=== PATIENT | female | born 1960 | race Caucasian/White ===

== ENCOUNTER → 2024-01-09 08:49 | Outpatient (REF) | payer OTHER, SELFPAY | LOC: WDC 08:49 | PROVIDERS: ATTENDING PHYSICIAN Student in an Organized Health Care Education/Training Program | DX: N64.59 Other signs and symptoms in breast (principal) | CPT/HCPCS: 76642; 77062; 77066 ==

== ENCOUNTER → 2024-01-15 10:12 | Outpatient (REF) | payer OTHER, SELFPAY | LOC: WDC 10:12 | PROVIDERS: ATTENDING PHYSICIAN Student in an Organized Health Care Education/Training Program | DX: N63.42 Unspecified lump in left breast, subareolar (principal) | CPT/HCPCS: 88305; 19083; 77065; 88341; 88342; 88360; A4648 ==

== ENCOUNTER → 2024-01-16 08:45 | Outpatient (REF) | payer OTHER, SELFPAY | LOC: RAD 08:45 | PROVIDERS: ATTENDING PHYSICIAN Student in an Organized Health Care Education/Training Program | DX: Z13.820 Encounter for screening for osteoporosis (principal) | CPT/HCPCS: 77080 ==

== ENCOUNTER → 2024-01-26 08:47 | Outpatient (REF) | payer OTHER, SELFPAY | LOC: RAD 08:47 | PROVIDERS: ATTENDING PHYSICIAN Surgery; FAMILY PHYSICIAN Student in an Organized Health Care Education/Training Program | DX: C50.412 Malignant neoplasm of upper-outer quadrant of left female breast (principal); Z17.0 Estrogen receptor positive status [ER+] | CPT/HCPCS: 71260; 74177; 78306; A9503; Q9967 ==

== ENCOUNTER → 2024-02-03 16:05 | Outpatient (REF) | payer OTHER, SELFPAY | LOC: MRI 3T 16:05 | PROVIDERS: ATTENDING PHYSICIAN Surgery; FAMILY PHYSICIAN Family Medicine | DX: C50.412 Malignant neoplasm of upper-outer quadrant of left female breast (principal); Z17.0 Estrogen receptor positive status [ER+] | CPT/HCPCS: 77049; A9585 ==

== ENCOUNTER 2024-03-30 16:09 | Emergency (ER) | payer OTHER, MEDICARE, SELFPAY ==
[2024-03-30 16:10] VITALS: BMI 32.2
[2024-03-30 16:12] VITALS: BP 165/79
[2024-03-30 16:35] LABS: Hematocrit 23.8 % (37.0-47.0); Hemoglobin 7.8 g/dL (12.0-16.0); Mean Corp Hgb Conc. 32.8 g/dL (33.0-37.0); Mean Corpuscular Hgb 32.6 pg (27.0-31.0); Mean Corpuscular Volume 99.6 fL (81.0-99.0); Mean Platelet Volume 8.9 fL (7.4-10.4); Platelet Count 186 10^3/uL (130-400); Red Blood Cell Count 2.39 10^6/uL (4.20-5.40); Red Cell Dist. Width 18.8 % (11.5-14.5); White Blood Cell Count 2.8 10^3/uL (4.8-10.8)
[2024-03-30 16:43] LABS: ALT (SGPT) 34 U/L (0-35); AST (SGOT) 39 U/L (14-36); Albumin 4.5 g/dl (3.5-5.0); Alkaline Phosphatase 116 U/L (38-126); Blood Urea Nitrogen 14 mg/dl (7-17); Calcium 8.4 mg/dl (8.4-10.2); Carbon Dioxide 25 mmol/L (22-30); Chloride 107 mmol/L (98-107); Glucose 109 mg/dl (70-99); Potassium 4.3 mmol/L (3.5-5.1); Sodium 142 mmol/L (135-145); Total Bilirubin 1.2 mg/dl (0.2-1.3); Total Protein 7.1 g/dl (6.3-8.2); eGFR > 60.00
--- NOTE | 2024-03-30 16:49 | ED.GENMED ---
History of Present Illness
General
Chief Complaint: Chest Pain
Source: patient
Exam Limitations: none
Time Seen by Provider: 03/30/24 16:48
History of Present Illness
History of Present Illness:
63-year-old female complaining of episodes of heart pounding and racing usually at night. Will come on gradually. No sudden onset. Denies actual chest pain shortness of breath pleuritic pain fever chills cough. Patient's family called the
oncologist today and based on the symptoms and a slight drop in hemoglobin recommended ED evaluation. Currently asymptomatic.
Past History
Past History
ED Past Medical History: Cancer
ED Past Surgical History: Orthopedic
Review of Systems
Review of Systems
All Other Systems: Not applicable
Constitutional: Denies fever or chills
Respiratory: Denies trouble breathing
ABD/GI: Reports no symptoms
Phy Exam
Physical Exam
Physical Exam:
GENERAL: Alert and oriented in no apparent distress
EYE: Orbits normal.
NECK: Supple, no thyroid palpable
ENT: Pharynx without erythema
CARDIAC: Regular rate and rhythm without any obvious murmurs.
LUNGS: Clear breath sounds,normal
ABDOMEN: Soft, without focal tenderness or distention
NEUROLOGICAL: Alert and oriented , grossly non-focal
SKIN: Warm and dry, no rash or lesion, no discoloration, skin intact.
MUSCULOSKELETAL: No edema,no deformity.Good color
PSYCH: Normal and appropriate interaction.
Scores
Heart Score for Chest Pain Patients
STEMI patient?: Not applicable
Course
Orders/Labs/Results
Orders:
Orders
03/30/24 16:10
Electrocardiogram (*1) Urgent
Reason for Study: Chest Pain
03/30/24 16:11
EKG- Treatment ONCE
03/30/24 16:21
CMP [Comprehensive Metabolic Panel] Urgent
Complete Blood Count/With Diff Urgent
Manual Differential Urgent
Troponin I Urgent
03/30/24 17:35
CT Chest Pe Study Urgent
Comment:
Reason For Exam: Heart racing/chest pain
IV Insert/Care/Rem.- Treatment PRN
IV Insert/Care/Rem.- Treatment PRN
0.9% Sodium Chloride 500 ml [Nss] 500 ml IV BOLUS
03/30/24 17:38
Type+Screen Urgent
03/30/24 18:15
ABO2 Urgent
BBK Wristband Number:
Associate notified that ABO2 has been ordered: [id number]
Date: 03/30/24
Time: 17:52
Personnel Psychologist ID: [id number]
Abnormal Lab Results
03/30/24
16:21
WBC 2.8 L 10^3/uL
(4.8-10.8)
RBC 2.39 L 10^6/uL
(4.20-5.40)
Hgb 7.8 L g/dL
(12.0-16.0)
Hct 23.8 L %
(37.0-47.0)
MCV 99.6 H fL
(81.0-99.0)
MCH 32.6 H pg
(27.0-31.0)
MCHC 32.8 L g/dL
(33.0-37.0)
RDW 18.8 H %
(11.5-14.5)
Glucose 109 H mg/dl
(70-99)
AST 39 H U/L
(14-36)
03/30/24 16:21
03/30/24 16:21
Vital Signs
Initial and Last Documented VS:
Initial Vital Signs
Temp Pulse Resp BP Pulse Ox
98.5 F 88 18 165/79 98
03/30/24 16:12 03/30/24 16:12 03/30/24 16:12 03/30/24 16:12 03/30/24 16:12
Last Documented Vital Signs
Temp Pulse Resp BP Pulse Ox
98.5 F 71 20 129/79 98
03/30/24 16:12 03/30/24 19:00 03/30/24 19:00 03/30/24 19:00 03/30/24 19:00
*Radiology
Radiology exam reviewed: radiology read reviewed (No pulmonary emboli. No acute findings)
*Pulse Oximetry
Patient hypoxic: no
*EKG
Interpreted by ED Provider?: Yes
Interpretation: normal
Comparison EKG: no changes
Heart Rate: 85
Rate: normal
Rhythm: sinus
Taylor: normal axis
Interval: normal interval
QRS Pattern: normal QRS
Ischemia: no ischemia
*Critical Care Note
Total Time (30-74mins, 75-104mins- exclusive of procedures): Not Applicable
Update Note
Update Note:
No serious explanation for patient's episodes of heart pounding mostly at night. Pap slowly could be anemia related although no significant drop in hemoglobin. Discussed a transfusion with possible symptomatic relief versus observation. Patient
does not want a transfusion at this time. She will have her follow-up closely. Discussed with patient's oncology
ED Attending Note
-
Portions of this chart may have been created with voice recognition software.� Occasional wrong word or��sound alike� substitutions may have occurred due to the inherent limitations of voice recognition software.
Discharge Plan
Departure
Patient Disposition: Home (Routine Discharge)
Date of Disposition: 03/30/24
Time of Disposition: 20:46
Patient with high blood pressure during this ER visit?: Yes
Discharge Problem:
Heart palpitations, anemia
Instructions: Anemia of inflammation (anemia of chronic disease), Palpitations ED, BLOOD PRESSURE
Referrals:
NONE,* [Active] -
Gus Robins, DO [Active] - Next open appointment
Activity Restrictions/Additional Instructions:
Call your oncologist tomorrow for close follow-up
Return with worsening palpitations chest pain shortness of breath passing out or any other unusual symptoms
Interventions
Interventions:
*Risk Screen - Suicide Last Done: 03/30/24 16:20
*General Assessment Last Done: 03/30/24 16:56
*Neglect/Abuse Screening Last Done: 03/30/24 16:20
*ED COVID-19 Vaccine History Last Done: 03/30/24 16:12
ED- Cardiac Assessment Last Done: 03/30/24 17:18
Discharge Date and Time
Print Language: HAITIAN
[2024-03-30 16:54] VITALS: BP 114/65
[2024-03-30 16:55] LABS: Troponin I < 0.012 ng/ml
[2024-03-30 17:01] VITALS: BP 142/80
[2024-03-30 17:27] LABS: Absolute Neutrophils -Man Diff 1.4 10^3/uL (1.4-6.5); Anisocytosis 2+; Band Neutrophils 0 % (0-3); Lymphocytes 43 % (20-51); Macrocytosis 1+; Monocytes 6 % (2-9); Normal RBC Morphology No; Platelets Checked Yes; Segmented Neutrophils 50 % (42-75); Total Cells Counted 100
[2024-03-30 17:28] LABS: Basophilic Stippling 1+; Polychromasia 1+
[2024-03-30] MEDS: NSS 500 IV (17:44)
[2024-03-30 18:00] VITALS: BP 129/84
[2024-03-30 19:00] VITALS: BP 129/79
== END 2024-03-30 21:07 | disposition home or self-care (01) ==
LOC: EMR 16:09
PROVIDERS: EMERGENCY PHYSICIAN Emergency Medicine; FAMILY PHYSICIAN Family Medicine
DX: R00.2 Palpitations (principal); D64.9 Anemia, unspecified
CPT/HCPCS: 99284; 71275; 80053; 84484; 85025; 86850; 86900; 86901; 93005; Q9967

== ENCOUNTER 2024-04-13 09:03 | Outpatient (RCR) | payer OTHER, MEDICARE, SELFPAY ==
[2024-04-13 09:15] VITALS: BP 155/72
[2024-04-13] MEDS: TYLENOL 650 MG PO (09:26)
[2024-04-13 09:33] VITALS: BP 155/72
[2024-04-13 09:54] VITALS: BP 132/68
[2024-04-13 11:56] VITALS: BP 133/73
[2024-04-13 14:32] LABS: ALT (SGPT) 34 U/L (0-35); AST (SGOT) 39 U/L (14-36); Albumin 4.3 g/dl (3.5-5.0); Alkaline Phosphatase 96 U/L (38-126); Blood Urea Nitrogen 12 mg/dl (7-17); Calcium 7.5 mg/dl (8.4-10.2); Carbon Dioxide 22 mmol/L (22-30); Chloride 109 mmol/L (98-107); Glucose 93 mg/dl (70-99); Iron 129 ug/dl (37-170); Sodium 141 mmol/L (135-145); Total Bilirubin 1.3 mg/dl (0.2-1.3); Total Protein 6.8 g/dl (6.3-8.2); eGFR > 60.00
[2024-04-13 14:41] LABS: Percent Saturation 40 % (20-50); Total Iron Binding Capacity 318 ug/dl (265-497)
[2024-04-13 14:48] LABS: Potassium 4.3 mmol/L (3.5-5.1)
== END 2024-05-11 23:59 | disposition home or self-care (01) ==
LOC: OID 09:03
PROVIDERS: ATTENDING PHYSICIAN Internal Medicine Hematology & Oncology; FAMILY PHYSICIAN Family Medicine
DX: C50.112 Malignant neoplasm of central portion of left female breast (principal); C79.51 Secondary malignant neoplasm of bone; R91.1 Solitary pulmonary nodule; D64.9 Anemia, unspecified
CPT/HCPCS: 36415; 36430; 80053; 82728; 83540; 83550; 86850; 86900; 86901; 86920; P9016

== ENCOUNTER → 2024-05-01 09:42 | Outpatient (REF) | payer OTHER, MEDICARE, SELFPAY | LOC: RCS 09:42 | PROVIDERS: ATTENDING PHYSICIAN Internal Medicine Cardiovascular Disease; FAMILY PHYSICIAN Student in an Organized Health Care Education/Training Program | DX: R00.2 Palpitations (principal); C79.51 Secondary malignant neoplasm of bone; C50.919 Malignant neoplasm of unspecified site of unspecified female breast | CPT/HCPCS: 93306; 93356 ==

== ENCOUNTER 2024-05-23 21:38 | Emergency (ER) | payer MEDICARE, OTHER, SELFPAY ==
[2024-05-23 21:43] VITALS: BP 136/80
[2024-05-23 22:00] LABS: % Basophils 0.6 % (0-2); % Lymphocytes 39.4 % (20.5-51.1); % Monocytes 8.2 % (1.7-9.3); % Neutrophils 51.8 % (42.2-75.2); Absolute Lymphocytes 0.7 10^3/uL (1.2-3.4); Absolute Monocytes 0.1 10^3/uL (0.1-0.6); Absolute Neutrophils 0.9 10^3/uL (1.4-6.5); Hematocrit 27.5 % (37.0-47.0); Hemoglobin 9.2 g/dL (12.0-16.0); Mean Corp Hgb Conc. 33.5 g/dL (33.0-37.0); Mean Corpuscular Hgb 32.7 pg (27.0-31.0); Mean Corpuscular Volume 97.9 fL (81.0-99.0); Mean Platelet Volume 9.1 fL (7.4-10.4); Nucleated Red Blood Cells % 0 %; Platelet Count 136 10^3/uL (130-400); Red Blood Cell Count 2.81 10^6/uL (4.20-5.40); Red Cell Dist. Width 18.7 % (11.5-14.5); White Blood Cell Count 1.7 10^3/uL (4.8-10.8)
[2024-05-23 22:12] LABS: ALT (SGPT) 26 U/L (0-35); AST (SGOT) 32 U/L (14-36); Albumin 4.5 g/dl (3.5-5.0); Alkaline Phosphatase 70 U/L (38-126); Blood Urea Nitrogen 14 mg/dl (7-17); Calcium 7.5 mg/dl (8.4-10.2); Carbon Dioxide 21 mmol/L (22-30); Chloride 104 mmol/L (98-107); Glucose 103 mg/dl (70-99); Potassium 4.2 mmol/L (3.5-5.1); Sodium 136 mmol/L (135-145); Total Protein 7.1 g/dl (6.3-8.2); eGFR > 60.00
[2024-05-23 22:41] LABS: Anisocytosis 1+; Normal RBC Morphology No
[2024-05-23 22:43] LABS: Ovalocytes 1+; Polychromasia Occasional; Tear Drop Red Blood Cells Occasional
--- NOTE | 2024-05-23 22:46 | ED.GENMED ---
Addendum entered and electronically signed by Natividad Card NP 05/25/24 15:15:
Preliminary blood culture report back with gram-positive cocci. I called the patient and she states she is feeling much better, she is afebrile. This is most likely skin contaminant I told her that final culture results are pending and we will
contact her if needed
Original Note:
History of Present Illness
General
Chief Complaint: Fever
Source: patient
Time Seen by Provider: 05/23/24 22:26
History of Present Illness
History of Present Illness:
This is a 63-year-old woman who has history of metastatic breast cancer, mets to the left upper lobe as well as spine and rib mets. She follows with Dr. Johnson and maintained on Verzenio twice daily since January or February of this year.
She complains of several day history of cough, congestion with onset of fever tonight with Tmax of 101.5 �F. She was given Advil 600 mg around 8:30 PM. She admits to intermittent dizziness for the past 1 to 2 days and lost her balance falling into
her dresser yesterday but denies fall, denies head injury. Intermittent dizziness, feeling off balance has persisted sporadically today but no loss of balance nor falls. She did have 1 episode of nausea and vomiting yesterday but no further nausea
nor vomiting today. Appetite has been fair. No abdominal nor back pain. She denies headache. Cough has been nonproductive. She denies nasal congestion nor rhinorrhea, no sore throat.
No close contacts with similar symptoms.
No leg pain or swelling.
No recent antibiotic use.
Patient has not received annual influenza nor COVID vaccinations.
Past History
Past History
ED Past Medical History: Cancer (Metastatic breast cancer)
ED Past Surgical History: Orthopedic
Social History
Tobacco: Non-smoker
Alcohol: None
Drug: None
Personal:
Living: alone
Employment: Employed
Family History
Family History: Other (Noncontributory)
Phy Exam
Physical Exam
Physical Exam:
GENERAL: This is a 63-year-old woman who appears her stated age, awake and alert, pleasant, appears in no acute distress. Oral temperature 99.5 �F. Sister is accompanying.
EYE: pupils equal and reactive. anicteric
NECK: Supple, nontender, no meningismus, no significant adenopathy.
ENT: posterior pharynx is clear, oral mucosa is moist. TM clear b/l, nares patent.
CARDIAC: Regular rate and rhythm. no murmur.
LUNGS: no acute respiratory distress, lungs are clear to auscultation.
ABDOMEN: Soft, nondistended, without focal tenderness, no r/g, no cvat. normoactive BS.
NEUROLOGICAL: Alert and oriented x3, no focal neuro deficits. Gait is steady.
SKIN: Mildly hot to touch and dry, minimally pale in color, good turgor. Few superficial circular excoriations bilateral posterior upper shoulders as well as bilateral dorsal forearms. Patient admits that she picks her skin.
MUSCULOSKELETAL: No C/C/E. peripheral pulses are full and equal b/l. No palpable tenderness.
PSYCH: Normal and appropriate interaction.
Sepsis
Sepsis Screening
Sepsis Assessment: Sepsis Ruled Out
Sepsis Screen
Sepsis Screen: Sepsis Ruled Out
Date: 05/24/24
Time: 00:07
Course
Orders/Labs/Results
Orders:
Orders
05/23/24 21:49
Complete Blood Count/With Diff Urgent
Comprehensive Metabolic Panel Urgent
05/23/24 22:43
CT Head W/o Iv Contrast Urgent
Comment:
Reason For Exam: dizziness/unsteady x 1-2 days. Hx met breast ca
CR Chest - 2 Views Urgent
Comment:
Reason For Exam: cough x few days, fever tonight
05/23/24 22:45
Acetaminophen [Tylenol] 1,000 mg PO NOW STA
05/23/24 22:48
COVID-19 Antigen Urgent
Source: Nasal Swab
Lactic Acid Urgent
Blood Culture Q30M
[facility] Source: Blood/Venous
Specimen Description:
Blood Culture Q30M
[facility] Source: Blood/Venous
Specimen Description:
Influenza A+B Rapid Molecular Urgent
[facility] Source: Nasal Swab
Specimen Description:
05/24/24 00:01
Oseltamivir Phosphate [Tamiflu] 75 mg PO NOW STA
Abnormal Lab Results
05/23/24 05/23/24
21:49 22:48
WBC 1.7 L* 10^3/uL
(4.8-10.8)
RBC 2.81 L 10^6/uL
(4.20-5.40)
Hgb 9.2 L g/dL
(12.0-16.0)
Hct 27.5 L %
(37.0-47.0)
MCH 32.7 H pg
(27.0-31.0)
RDW 18.7 H %
(11.5-14.5)
Absolute Neuts (auto) 0.9 L* 10^3/uL
(1.4-6.5)
Absolute Lymphs (auto) 0.7 L 10^3/uL
(1.2-3.4)
Carbon Dioxide 21 L mmol/L
(22-30)
Glucose 103 H mg/dl
(70-99)
Lactic Acid 0.6 L mmol/L
(0.7-2.0)
Calcium 7.5 L mg/dl
(8.4-10.2)
05/23/24 21:49
05/23/24 21:49
Vital Signs
Initial and Last Documented VS:
Initial Vital Signs
Temp Pulse Resp BP Pulse Ox
99.5 F 114 26 136/80 97
05/23/24 21:43 05/23/24 21:43 05/23/24 21:43 05/23/24 21:43 05/23/24 21:43
Last Documented Vital Signs
Temp Pulse Resp BP Pulse Ox
99.5 F 114 26 136/80 97
05/23/24 21:43 05/23/24 21:43 05/23/24 21:43 05/23/24 21:43 05/23/24 21:43
MDM/Problems Addressed
Differential Diagnosis Includes:
Concern for pneumonia, COVID URI/acute influenza. Concern for sepsis, concern for neutropenic fever.
Patient chronically maintained on oral chemotherapeutic agent thus immunocompromised, at increased risk for sepsis/severe disease.
Will check chest x-ray. COVID and influenza testing.
Complaining of intermittent dizziness, off-balance sensation since yesterday. No focal neurodeficits and gait tonight is currently steady. However history of metastatic breast cancer, concern for brain metastasis, other consideration is CVA, will
check CT of the head.
Labs thus far revealed neutropenia with white blood cell count of 1.7. Absolute neutrophil count of 884.
Mild anemia with hemoglobin of 9.2. Normal platelet count.
Chemistries are unremarkable save for mild hypocalcemia at 7.5.
Will add blood cultures, lactic acid.
Thus far hemodynamically stable. Mild sinus tachycardia initially has normalized, with normal blood pressure. Will give a dose of Tylenol for fever.
Chronic conditions affecting care: Cancer (Metastatic breast cancer)
*Radiology
Radiology exam reviewed: preliminary read by ED provider (Chest x-ray is unremarkable.) and radiology read reviewed (CT of the head is unremarkable)
*Pulse Oximetry
Patient hypoxic: no
*Critical Care Note
Total Time (30-74mins, 75-104mins- exclusive of procedures): Not Applicable
Update Note
Update Note:
00:02
Patient feeling improved after Tylenol.
Tolerating oral fluids.
Influenza testing is positive for influenza A. Patient denies exposure to birds/livestock/raw milk.
COVID testing is negative.
Lactic acid normal 0.6.
Chest x-ray is unremarkable. No evidence of infiltrate.
CT of the head is unremarkable as well.
Case discussed with oncology, Dr. Johnson who recommends initiation of Tamiflu but at this point with reassuring labs and overall patient is well in appearance, no indication for hospitalization.
Recommend supportive measures, staying well-hydrated, continuing Tylenol versus ibuprofen as needed for fever, aches.
Prompt follow-up with oncologist for recheck.
Return precautions discussed.
ED Attending Note
-
Portions of this chart may have been created with voice recognition software.� Occasional wrong word or��sound alike� substitutions may have occurred due to the inherent limitations of voice recognition software.
Discharge Plan
Departure
Patient Disposition: Home (Routine Discharge)
Date of Disposition: 05/24/24
Time of Disposition: 00:05
Patient with high blood pressure during this ER visit?: No
Condition: Good
Discharge Problem:
Influenza A
Instructions: Fever, Adult (DC), Flu in adults - Discharge instructions
Prescriptions:
New
oseltamivir [Tamiflu] 75 mg capsule
75 mg PO BID Qty: 10 0RF
No Action
Vitamin D3
2 tab PO DAILY
Referrals:
Blanca Allred MD [Active] - Call in 1-3 days for appt
Eleazar Ibarra DO [Family Provider] -
Interventions
Interventions:
*Risk Screen - Suicide Last Done: 05/23/24 21:43
*General Assessment Last Done: 05/23/24 22:50
*Neglect/Abuse Screening Last Done: 05/23/24 21:43
*ED COVID-19 Vaccine History Last Done: 05/23/24 22:50
Discharge Date and Time
Print Language: PERSIAN
[2024-05-23 22:49] LABS: Toxic Granulation Occassional
[2024-05-23 22:50] VITALS: BMI 30.3
[2024-05-23] MEDS: TYLENOL 1000 MG PO (23:01)
[2024-05-23 23:20] LABS: Lactic Acid 0.6 mmol/L (0.7-2.0)
[2024-05-23 23:21] LABS: COVID-19 Antigen Negative (Negative)
[2024-05-23 23:22] VITALS: BP 116/69
[2024-05-24] VITALS: BP 118/63
[2024-05-24] MEDS: TAMIFLU 75 MG PO (00:17)
== END 2024-05-24 00:24 | disposition home or self-care (01) ==
LOC: EMR 21:38
PROVIDERS: Emergency Medicine; EMERGENCY PHYSICIAN Emergency Medicine; FAMILY PHYSICIAN Family Medicine
DX: J10.1 Influenza due to other identified influenza virus with other respiratory manifestations (principal); C50.919 Malignant neoplasm of unspecified site of unspecified female breast; C78.02 Secondary malignant neoplasm of left lung; C79.51 Secondary malignant neoplasm of bone
CPT/HCPCS: 99284; 70450; 71046; 80053; 83605; 85025; 87040; 87150; 87205; 87502; 87811

== ENCOUNTER → 2024-08-31 08:34 | Outpatient (REF) | payer MEDICARE, OTHER, SELFPAY | LOC: RCS 08:34 | PROVIDERS: ATTENDING PHYSICIAN Internal Medicine Cardiovascular Disease; FAMILY PHYSICIAN Student in an Organized Health Care Education/Training Program | DX: R07.9 Chest pain, unspecified (principal) | CPT/HCPCS: 93017; 93350 ==

== ENCOUNTER → 2024-09-13 11:41 | Outpatient (REF) | payer MEDICARE, OTHER, SELFPAY | LOC: HWRCS 11:41 | PROVIDERS: ATTENDING PHYSICIAN Internal Medicine Cardiovascular Disease; FAMILY PHYSICIAN Student in an Organized Health Care Education/Training Program | DX: R07.9 Chest pain, unspecified (principal) | CPT/HCPCS: 78452; 93017; A9500; J2785 ==